=== PATIENT | male | born 1990 | race Caucasian/White ===

== ENCOUNTER → 2017-09-24 | Outpatient (CLI) | payer OTHER ==
[~2017-09-24] MED LIST: ALBUTEROL0.09 MG/A2 INH; FANAPT2 MG PO; MOTRIN800 MG PO; NAPROSYN500 MG PO; OMEPRAZOLE MAGN20 MG PO; PRIMIDONE250 MG PO
[2017-09-24 13:18] LABS: BASO # 0.1 10*3/uL (0.0-0.1); BASO % 0.9 % (0.0-1.0); EOS # 0.1 10*3/uL (0.0-0.4); EOS % 1.7 % (1.0-4.0); HEMATOCRIT 46.3 % (42.0-52.0); HEMOGLOBIN 14.7 g/dl (14.0-18.0); LYMPH # 2.6 10*3/uL (1.3-4.4); LYMPH % 31.7 % (27.0-41.0); MEAN CELL VOLUME 86.9 fl (80.0-94.0); MEAN CORPUSCULAR HGB 27.6 pg (27.0-31.0); MEAN CORPUSCULAR HGB CONC 31.7 g/dl (33.0-37.0); MEAN PLATELET VOLUME 11.8 fl (9.6-12.3); MONO # 0.4 10*3/uL (0.1-1.0); MONO % 4.9 % (3.0-9.0); NEUT # 4.9 10*3/uL (2.3-7.9); NEUT % 60.6 % (47.0-73.0); PLATELET COUNT AUTOMATED 269 10*3/uL (130-400); RED BLOOD COUNT 5.33 10*6/uL (4.50-5.90); RED CELL DISTRI WIDTH 13.9 % (0-14.5)
[2017-09-24 13:22] LABS: ALBUMIN 3.6 gm/dl (3.1-4.5); BUN 6 mg/dl (7-24); CHLORIDE 108 mmol/L (98-107); CHOLESTEROL 159 mg/dL (<200); CREATININE 0.88 mg/dL (0.70-1.30); HDL CHOLESTEROL 33 mg/dl (40-60); LDL CHOLESTEROL 109 mg/dL (9-159); POTASSIUM 3.8 mmol/L (3.5-5.1); SODIUM 142 mmol/L (136-145); TOTAL PROTEIN 8.2 gm/dL (6.4-8.2); TRIGLYCERIDES 86 mg/dl (<150); VLDL CHOLESTEROL 17 mg/dL (6-40)
[2017-09-24 13:23] LABS: ALKALINE PHOSPHATASE 101 U/L (45-117); SGOT/AST 53 IU/L (3-35); SGPT/ALT 151 U/L (12-78)
== END | disposition home or self-care (01) ==
LOC: LAB 11:35
PROVIDERS: Registered Nurse Psychiatric/Mental Health
DX: F31.81 Bipolar II disorder (principal); E55.9 Vitamin D deficiency, unspecified

== ENCOUNTER 2017-12-23 18:40 | Emergency (ER) | payer OTHER ==
[~2017-12-23] VITALS: Wt 124.7 kg
[2017-12-23] MEDS ORDERED: CIPRODEX 0.3%-7.5 ML OT (19:03)
== END 2017-12-23 19:29 | disposition home or self-care (01) ==
LOC: ED 18:40
DX: H60.91 Unspecified otitis externa, right ear (principal); Z91.040 Latex allergy status; Z79.899 Other long term (current) drug therapy

== ENCOUNTER → 2019-12-09 | Outpatient (CLI) | payer OTHER ==
[~2019-12-09] MED LIST changes: +CIPRODEX 0.3%-7.5 ML OT
== END | disposition home or self-care (01) ==
LOC: US 12-02 10:00
PROVIDERS: ATTEND Family Medicine
DX: R74.0 Nonspecific elevation of levels of transaminase and lactic acid dehydrogenase [LDH] (principal)

== ENCOUNTER 2020-12-04 17:18 | Emergency (ER) | payer OTHER ==
[~2020-12-04] VITALS: Ht 170.1 cm; Wt 136.1 kg
[2020-12-04 19:25] LABS: BASO % 0.4 % (0.0-1.0); EOS # 0.2 10*3/uL (0.0-0.4); EOS % 3.5 % (1.0-4.0); HEMATOCRIT 45.5 % (42.0-52.0); LYMPH # 2.3 10*3/uL (1.3-4.4); MEAN CELL VOLUME 86.5 fl (80.0-94.0); MEAN CORPUSCULAR HGB 27.4 pg (27.0-31.0); MEAN CORPUSCULAR HGB CONC 31.6 g/dl (33.0-37.0); MEAN PLATELET VOLUME 11.1 fl (9.6-12.3); MONO # 0.3 10*3/uL (0.1-1.0); MONO % 5.8 % (3.0-9.0); NEUT # 2.4 10*3/uL (2.3-7.9); NEUT % 45.1 % (47.0-73.0); PLATELET COUNT AUTOMATED 145 10*3/uL (130-400); RED BLOOD COUNT 5.26 10*6/uL (4.50-5.90); RED CELL DISTRI WIDTH 14.6 % (0-14.5); WHITE BLOOD COUNT 5.2 10*3/uL (4.8-10.8)
[2020-12-04 19:41] LABS: ALBUMIN 3.3 gm/dl (3.1-4.5); ALKALINE PHOSPHATASE 123 U/L (45-117); BUN 7 mg/dl (7-24); CHLORIDE 109 mmol/L (98-107); CREATININE 0.73 mg/dL (0.70-1.30); POTASSIUM 3.9 mmol/L (3.5-5.1); SGOT/AST 117 IU/L (3-35); SGPT/ALT 190 U/L (12-78); SODIUM 141 mmol/L (136-145); TOTAL PROTEIN 7.8 gm/dL (6.4-8.2)
[2020-12-04 19:47] LABS: BILIRUBIN 1+ (Negative); BLOOD Negative (Negative); CLARITY Clear (Clear); COLOR Dark Yellow (Yellow); GLUCOSE Negative (Negative); KETONE Trace (Negative); LEUKO ESTERASE Negative (Negative); NITRITE Negative (Negative); SPECIFIC GRAVITY >= 1.030 (1.001-1.030)
[2020-12-04 19:55] LABS: RBC 0-2 rbc/hpf (0-2)
[2020-12-04 19:56] LABS: BACTERIA TRACE
== END 2020-12-04 22:38 | disposition home or self-care (01) ==
LOC: ED 17:18
PROVIDERS: Nurse Practitioner
DX: J45.901 Unspecified asthma with (acute) exacerbation (principal); Z20.822 Contact with and (suspected) exposure to COVID-19; Z91.040 Latex allergy status; Z79.899 Other long term (current) drug therapy

== ENCOUNTER → 2021-08-26 | Outpatient (CLI) | payer OTHER | END | disposition home or self-care (01) | LOC: US 07-26 09:00 | PROVIDERS: ATTEND Family Medicine | DX: K76.0 Fatty (change of) liver, not elsewhere classified (principal) ==

== ENCOUNTER → 2022-07-07 | Outpatient (CLI) | payer MEDICAID ==
[2022-07-07 07:56] LABS: BASO # 0.1 10*3/uL (0.0-0.1); BASO % 0.7 % (0.0-1.0); EOS # 0.2 10*3/uL (0.0-0.4); EOS % 1.7 % (1.0-4.0); HEMATOCRIT 46.2 % (42.0-52.0); LYMPH # 3.4 10*3/uL (1.3-4.4); LYMPH % 33.3 % (27.0-41.0); MEAN CORPUSCULAR HGB 27.6 pg (27.0-31.0); MEAN PLATELET VOLUME 11.4 fl (9.6-12.3); MONO # 0.5 10*3/uL (0.1-1.0); MONO % 4.5 % (3.0-9.0); NEUT # 6.2 10*3/uL (2.3-7.9); NEUT % 59.5 % (47.0-73.0); PLATELET COUNT AUTOMATED 232 10*3/uL (130-400); RED BLOOD COUNT 5.37 10*6/uL (4.50-5.90); RED CELL DISTRI WIDTH 13.9 % (0-14.5); WHITE BLOOD COUNT 10.3 10*3/uL (4.8-10.8)
[2022-07-07 08:39] LABS: ALKALINE PHOSPHATASE 104 U/L (46-116); BUN 9 mg/dl (9-23); CHLORIDE 106 mmol/L (98-107); CHOLESTEROL 177 mg/dL (<200); GAMMA GLUTAMYL TRANSPEPTIDASE 88 U/L (0-73); LDL CHOLESTEROL 120 mg/dL (9-159); POTASSIUM 3.4 mmol/L (3.4-5.1); SGPT/ALT 104 U/L (10-49); THYROID STIM HORMONE (HS) 4.552 uIU/ml (0.550-4.780); TRIGLYCERIDES 86 mg/dl (<150)
== END ==
LOC: LAB 00:22 → US 07:30
PROVIDERS: Student in an Organized Health Care Education/Training Program; ATTEND Nurse Practitioner Adult Health
DX: K76.0 Fatty (change of) liver, not elsewhere classified (principal); E66.01 Morbid (severe) obesity due to excess calories; R74.8 Abnormal levels of other serum enzymes; E55.9 Vitamin D deficiency, unspecified

== ENCOUNTER → 2022-08-07 | Outpatient (CLI) | payer MEDICAID ==
[2022-08-13 15:07] LABS: COTININE <1.0 ng/mL (.); NICOTINE <1.0 ng/mL (.)
== END | disposition home or self-care (01) ==
LOC: LAB 00:08
PROVIDERS: Nurse Practitioner Adult Health; ATTEND Student in an Organized Health Care Education/Training Program
DX: Z01.818 Encounter for other preprocedural examination (principal); Z72.0 Tobacco use; E66.01 Morbid (severe) obesity due to excess calories; Z71.3 Dietary counseling and surveillance

== ENCOUNTER → 2022-09-22 | Outpatient (CLI) | payer MEDICAID | END | disposition home or self-care (01) | LOC: D 09:25 | PROVIDERS: ATTEND Student in an Organized Health Care Education/Training Program | DX: E66.01 Morbid (severe) obesity due to excess calories (principal) ==

== ENCOUNTER → 2025-01-03 | Outpatient (CLI) | payer OTHER | END | disposition home or self-care (01) | LOC: RAD 16:41 | PROVIDERS: ATTEND Family Medicine | DX: M47.27 Other spondylosis with radiculopathy, lumbosacral region (principal); M48.07 Spinal stenosis, lumbosacral region ==